=== PATIENT | female | born 1990 | race Caucasian/White ===

== ENCOUNTER → 2018-11-16 | Outpatient (CLI) | payer OTHER ==
[2018-11-16] VITALS (8 sets, daily range): BP systolic 61–110; BP diastolic 29–70
--- NOTE | ~2018-11-16 | PROC ---
[address] [address] PROCEDURE REPORT Name: RENEE DAVIS Room: [facility]#: [id number] Admission: 11/16/18 Attend Phys: Ethan Landry MD, F Discharge: Date of : 89 Report #: [id number] THIS REPORT FOR: //name// CC: Cristine Landry DATE OF SERVICE: 11/16/2018 INDICATIONS: Head upright tilt table testing was requested in this patient with a history of lightheadedness. RESULTS: Head upright tilt table testing was performed by obtaining blood pressure and heart rate in the supine position. The patient was then placed in the head upright position for 20 minutes at which time she was given nitroglycerin 0.4 mg sublingually. The patient's heart rhythm was monitored throughout the procedure with cardiac monitoring. At baseline, the patient had blood pressure 105/60 with a heart rate of 74 and the patient was in sinus rhythm. The patient was then placed in the head upright position at 70 degrees. There was no significant change in blood pressure nor heart rate during this time and the patient remained in sinus rhythm and was without complaints. The patient was then given nitroglycerin 0.4 mg sublingually. Approximately 10 minutes later, the patient complained of being lightheaded. She was noted to become hypotensive with a blood pressure 60/30 and she became tachycardic in sinus tachycardia. The patient became drowsy, but did not have complete loss of consciousness. The patient was then placed back into the supine position. At this time, the patient had a blood pressure of 104/60 with a pulse of 88. Her symptoms resolved. The patient denied any complaints at the end of the procedure. IMPRESSION: Positive head upright tilt table test for neurocardiogenic syncope. The patient had a predominant vasodepressor response. There was no significant evidence of a negative chronotropic response. By: [id number] Landry MD, [facility] /nt
== END | disposition home or self-care (01) ==
LOC: M.CL 09:05
DX: R55 Syncope and collapse (principal)